=== PATIENT | male | born 1975 | race Caucasian/White ===

== ENCOUNTER 2021-06-17 21:50 | Emergency (ER) | payer SELFPAY ==
[~2021-06-17] VITALS: Ht 182.9 cm; Wt 119.7 kg
[2021-06-17] MEDS ORDERED: NALOXONE PREFILLED SYRINGE 2 MG/2 ML SYRINGE ONE (21:55)
--- NOTE | 2021-06-17 21:55 | NUR ---
PT BROUGHT IN BY RA DUE TO UNRESPONSIVENESS. PER EMS, FAMILY STATED PT CHOKED ON CHICKEN PRIOR TO BECOMING UNRESPONSIVE. PT ARRIVED WITH NPA INSERTED BY EMS AND RESCUE BREATHS WERE BEING GIVEN. PT PLACED ON 15 LPM BREATHUING SPONTANEOUSLY SATTING 100%. PT CHANGED INTO A GOWN AND PLACED ON MONITOR. ALL VITAL STABLE. BLOOD DRAWN AND SENT TO LAB. WAS AT BEDSIDE FOR EVAL.
--- NOTE | 2021-06-17 21:56 | NUR ---
TELEMED REQUEST SENT
--- NOTE | 2021-06-17 21:59 | NUR ---
DR GONSALEZ SPEAKING TO NEUROLOGIST
[2021-06-17] MEDS ORDERED: NALOXONE HCL 0.4 MG/ML AMPUL IV ONE (22:00)
[2021-06-17] MEDS ORDERED: IV NS 0.9% 500 ML BAG IV ONE (22:00)
--- NOTE | 2021-06-17 22:00 | NUR ---
PT GIVEN 2MG NARCAN AND REGAINED CONSCIOUSNESS. PT MOVING ALL EXTREMITIES WITH EQUAL STRENGTH. PT A&OX0 AND AGGITATED. PT IS ON THE MONITOR ALL VSS. WILL CONTINUE TO MONITOR.
--- NOTE | 2021-06-17 22:05 | NUR ---
PT TAKEN TO CT
[2021-06-17 22:22] LABS: BASOPHILS # (AUTO) 0.1 K/uL (0.0-0.2); EOSINOPHILS % (AUTO) 0.4 % (0.0-6.0); MONOCYTES # (AUTO) 0.6 K/uL (0.1-1.30); RED BLOOD CELL COUNT(AUTO) 4.91 MIL/uL (4.5-6.0)
[2021-06-17 22:25] LABS: BASOPHILS % (AUTO) 0.5 % (0.0-2.0); HEMATOCRIT 46 % (39-51); LYMPHOCYTES # (AUTO) 3.3 K/uL (0.8-4.8); LYMPHOCYTES % (AUTO) 26.4 % (20.0-44.0); MEAN CORPUSCULAR HGB CONC 33 g/dl (31.0-36.0); MEAN CORPUSCULAR VOLUME 94 fL (80-96); MONOCYTES % (AUTO) 4.9 % (2.0-12.0); NEUTROPHILS # (AUTO) 8.5 K/uL (1.8-8.9); NEUTROPHILS % (AUTO) 67.8 % (43.0-81.0); PLATELET COUNT (AUTO) 322 K/uL (150-450); WHITE BLOOD COUNT (AUTO) 12.6 K/uL (4.3-11.0)
--- NOTE | 2021-06-17 22:29 | NUR ---
ER MD RODRIGUEZ SPEAKING TO RADIOLOGIST SARA CONWAY
[2021-06-17 22:35] LABS: ALANINE AMINOTRANSFERASE 46 U/L (12-78); ALBUMIN 4.2 g/dL (3.4-5.0); ALCOHOL, BLOOD 34 mg/dL (0-0); ALKALINE PHOSPHATASE 91 U/L (46-116); ASPARTATE AMINOTRANSFERASE 21 U/L (15-37); BILIRUBIN,DIRECT 0.1 mg/dL (0.0-0.2); BILIRUBIN,TOTAL 0.1 mg/dL (0.2-1.0); CALCIUM, SERUM 8.8 mg/dL (8.5-10.1); CARBON DIOXIDE 26 mmol/L (21-32); CHLORIDE 99 mmol/L (98-107); CREATININE 1.6 mg/dL (0.6-1.3); POTASSIUM 3.9 mmol/L (3.5-5.1); SODIUM SERUM 139 mmol/L (136-145); TOTAL PROTEIN, SERUM 8.1 g/dL (6.4-8.2); UREA NITROGEN, BLOOD 15 mg/dL (7-18)
[2021-06-17 22:35] LABS: ABG BASE EXCESS -7.2 mmol/L; ABG PCO2 49.5 mmHg (35.0-45.0); ABG PH 7.235 (7.350-7.450); ABG PO2 127.6 mmHg (75.0-100.0); COHb 0.7 % (0.5-1.5); MetHb 0.5 % (0.0-1.5); O2Hb 97.2 % (94.0-97.0); SITE, ABG Left Radial; VENT MODE, BG NRB 15L
[2021-06-17 22:36] LABS: GLUCOSE 365 mg/dL (74-106)
--- NOTE | 2021-06-17 22:36 | NUR ---
GLUCOSE 365
--- NOTE | 2021-06-17 22:39 | NUR ---
URINE SAMPLE SENT TO LAB
--- NOTE | 2021-06-17 22:40 | NUR ---
PT ALERT AND ORIENTED TO NAME IS UNABLE TO RECALL EVENTS LEADING UP TO INJURY AND WHERE HE IS CURRENTLY. PT CALM AND COOPERATIVE BREATHING UNLABORED TITRATED FROM 15LPM NRB TO 10LPM SIMPLE MASK SATTING 100%. WILL CONTINUE TO MONITOR.
[2021-06-17 22:53] LABS: BILIRUBIN,URINE NEGATIVE (NEGATIVE); COLOR,URINE YELLOW (YELLOW); LEUKOCYTE ESTERASE ,URINE NEGATIVE (NEGATIVE); NITRITE, URINE NEGATIVE (NEGATIVE); PH,URINE 5.5 (5.0-8.0); PROTEIN,URINE 100 mg/dl (NEGATIVE); UGLUCOSE >=1000 mg/dL (NEGATIVE); UROBILINOGEN,URINE 0.2 EU/dL (0.2)
[2021-06-17 23:00] LABS: ACETAMINOPHEN 0 ug/ml (10-30)
[2021-06-17 23:09] LABS: BAND % (MANUAL) 1 % (0.0-5.0); EOSINOPHILS % (MANUAL) 3 % (0-4); LYMPHOCYTES % (MANUAL) 20 % (16-48); METAMYELOCYTES % 2 % (0-0); MONOCYTES % (MANUAL) 1 % (0-11.0); NEUTROPHILS % (MANUAL) 69 (42-76); REACTIVE LYMPHOCYTES 4 % (0-0)
[2021-06-17 23:15] LABS: BACTERIA,URINE Few /HPF (None Seen); SQUAMOUS EPITHELIAL CELL,UR Few /HPF (None Seen)
--- NOTE | 2021-06-18 00:04 | NUR ---
CRITICAL, LAB CALLED FOR PTT GREATER THAN 170, CALLED LAB FOR REDRAW
--- NOTE | 2021-06-18 00:23 | NUR ---
PER LAB, PTT TOO HIGH. WILL DO A REDRAW.
--- NOTE | 2021-06-18 01:50 | NUR ---
PT SLEEPING COMOFORTABLY EASILY AROUSABLE AND BREATHING EVEN AND UNLABORED. ATTEMPTED TO WEAN PATIENT TO ROOM AIR PATIENT DROPPED TO 80%. PLACED ON NC 5LPM 97%. WILL CONTINUE TO MONITOR.
--- NOTE | 2021-06-18 04:05 | NUR ---
O2 DESATTING TO 80S ON NC PLACED BACK ON SIMPLE MASK 10LPM SATURATION INCREASED TO 99%. WILL CONTINUE TO MONITOR.
--- NOTE | 2021-06-18 05:51 | NUR ---
Pt placed on CPAP of 8, FIO2 40% via L size full mask per MD Paulino. Will cont to monitor. Addendum: 06/18/21 at 0553 by ARELY MONTES DE OCA RT Amended: Links added.
--- NOTE | 2021-06-18 06:19 | NUR ---
PT SLEEPING COMOFORTABLY EASILY AROUSABLE AND BREATHING EVEN AND UNLABORED. ALL VITALS STABLE.
--- NOTE | 2021-06-18 11:54 | NUR ---
THE PATIENT SLEEPING. RESPONSIVE TO VERBAL STIMULI. WILL CONTINUE TO MONITOR THE PATIENT.
--- NOTE | 2021-06-18 12:17 | NUR ---
THE PATIENT AWAKE, ALERT AND ORIENTED X4. DENIES PAIN. IN ROOM AIR AND DENIES SOB. RESPIRATION REGULAR AND UNLABORED. ATTACHED TO THE MONITOR
[2021-06-18 12:49] VITALS: BP 144/75
--- NOTE | 2021-06-18 12:49 | NUR ---
IV removed. Catheter intact and site benign. Pressure and 4x4 applied to site. No bleeding noted.Patient discharged to home in stable condition. Written and verbal after care instructions given. Patient verbalizes understanding of instruction.
== END 2021-06-18 12:50 | disposition home or self-care (01) ==
LOC: ER 21:56
DX: T40.601A Poisoning by unspecified narcotics, accidental (unintentional), initial encounter (principal); R40.4 Transient alteration of awareness; Y92.039 Unspecified place in apartment as the place of occurrence of the external cause; I10 Essential (primary) hypertension; R00.0 Tachycardia, unspecified; R73.9 Hyperglycemia, unspecified; Z20.822 Contact with and (suspected) exposure to COVID-19; R09.02 Hypoxemia
CPT/HCPCS: 36415; 36600; 70450; 71045 ×2; 80048; 80076; 80143; 80307; 80320; 81001; 82803; 82962; 84484; 85007; 85025; 85730; 87086; 87426; 93005; 94660; 96374; 99285; C9803; J2310; J7040; G0480